=== PATIENT | male | born 1990 | race Caucasian/White ===

== ENCOUNTER 2020-05-11 08:50 | Emergency (ER) | payer MEDICAID ==
[~2020-05-11] VITALS: Ht 167.6 cm; Wt 70.8 kg
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
--- NOTE | 2020-05-11 09:40 | NUR ---
DESKTOP SUPPORT MANAGER AT BEDSIDE FOR XRAY.
[2020-05-11] MEDS ORDERED: HYDROCODONE/APAP 5/325MG TABLET ONE (10:46)
[2020-05-11] MEDS ORDERED: KETOROLAC TROMETHAMINE 15 MG/ML VIAL ONE (10:46)
[2020-05-11] MEDS: HYDROCODONE/APAP 5/325MG TABLET PO ONE (10:54)
[2020-05-11] MEDS: KETOROLAC TROMETHAMINE INJ 30 MG/ML VIAL IM ONE (10:54)
[2020-05-11] MEDS ORDERED: TDAP [DIPH/PERTUSSIS/TET] 0.5 ML VIAL IM ONE (10:55)
[2020-05-11] MEDS: TDAP [DIPH/PERTUSSIS/TET] 0.5 ML VIAL IM ONE (11:05)
--- NOTE | 2020-05-11 11:05 | NUR ---
patient refused tdap. explained risk and benefits, still decided not to take the vaccine
[2020-05-11 11:24] VITALS: BP 127/68
--- NOTE | 2020-05-11 11:24 | NUR ---
Patient discharged to home in stable condition. Written and verbal after care instructions given. Patient verbalizes understanding of instruction. Patient will be picked up by mom at the waiting room. Instructed not to drive
== END 2020-05-11 11:25 | disposition home or self-care (01) ==
LOC: ER 08:57
DX: S80.212A Abrasion, left knee, initial encounter (principal); S80.211A Abrasion, right knee, initial encounter; M25.531 Pain in right wrist; R07.81 Pleurodynia; V23.4XXA Motorcycle driver injured in collision with car, pick-up truck or van in traffic accident, initial encounter; Y93.55 Activity, bike riding; Y92.89 Other specified places as the place of occurrence of the external cause; Y99.8 Other external cause status
CPT/HCPCS: 71100; 73110; 73564 ×2; 96372; 99284; J1885; 90715